=== PATIENT | male | born 1980 | race Caucasian/White ===

== ENCOUNTER 2021-06-09 17:52 | Emergency (ER) | payer OTHER, SELFPAY ==
--- NOTE | ~2021-06-09 | XR_ITS ---
EXAMINATION: PORTABLE CHEST 1 VIEW CLINICAL INFORMATION: sob . COMPARISON: No recent pertinent prior studies are available for comparison. TECHNIQUE: Portable frontal view of the chest was obtained. FINDINGS: The lungs are hypoexpanded. Mild basilar atelectasis but no superimposed focal infiltrate, effusion, edema, or pneumothorax. Cardiac and mediastinal silhouettes are within normal limits for technique. No acute bony abnormality seen. XR/XR chest 1V IMPRESSION: Mild basilar atelectasis and hypoexpansion
[2021-06-09 18:00] VITALS: BP 160/99; PULSE 120; RESP 18; TEMP 37.8; O2SAT 95; BMI 40.1
[2021-06-09 18:43] LABS: COVID-19 Test Positive (Negative); IDNOW Serial# 55D5AD1C
--- NOTE | 2021-06-09 20:14 | ED_ITS ---
HPI - SOB/Dyspnea General Chief Complaint: Dyspnea Stated Complaint: diff breathing Time Seen by Provider: 06/09/21 20:13 Source: patient Mode of arrival: ambulatory Limitations: no limitations History of Present Illness HPI Narrative: weeks ago patient had a sore throat and achey Patient had cough for 11 days. MD elicited complaint: shortness of breath and cough Onset (ago): day(s) (11 days) Timing: constant Severity: mild Exacerbating factors: coughing Associated symptoms: denies other symptoms Related Data Allergies Allergy/AdvReac Type Severity Reaction Status Date / Time No Known Allergies Allergy Verified 06/09/21 18:03 Review of Systems Constitutional: Constitutional: Reports no additional constitutional complaints Eyes: Eyes: Reports no additional eye complaints ENT: Denies dizziness Cardiovascular: Cardiovascular: Reports no additional cardiovascular complaints Respiratory: Respiratory: Reports as per HPI Gastrointestinal: Gastrointestinal: Reports no additional gastrointestinal complaints Musculoskeletal: Musculoskeletal: Reports no additional musculoskeletal complaints Integumentary/Breasts: Skin/Breast: Denies rash Neurologic: Reports system reviewed and no additional complaints, except as documented, Denies dizziness and Denies Sensory deficit (Neuro) Psychiatric: Psychiatric: Denies anxiety [facility] Past Medical History Medical History No acute medical problems Surgical History No history of previous surgery Social History Social History Advance Directives: No Advance Directives Information Provided: No Physical Exam Vital Signs: Vital Signs: Last Vital Signs Temp 100.0 F 06/09/21 18:00 Pulse 120 H 06/09/21 18:00 Resp 18 06/09/21 18:00 BP 160/99 H 06/09/21 18:00 Pulse Ox 95 06/09/21 18:00 Body Mass Index 40.1 Const: Other: male with cough but not looking bad Nutritional Appearance: average body habitus Orientation/consciousness: oriented to person and patient oriented x3 Limitations: no limitations HENMT: Head: Yes normal to inspection Ears: external ears normal General nose exam: Normal external nose present Mouth: Normal oral and palatal mucosa present and oropharynx normal Throat: Yes posterior oropharynx normal Eyes: General: appearance normal, both eyes and all related structures Neck: Other: supple Neck: Yes normal visual inspection Chest: Chest palpation & inspection: normal inspection of the chest Resp: Auscultation: clear to auscultation bilaterally Cardio: Other: tachycardia Jugular venous distension: no JVD Rate: regular rate Rhythm: regular rhythm Heart sounds: S1 normal heart sound present and S2 normal heart sound present GI: Inspection: Yes normal to inspection Palpation (GI): Soft to palpation, nontender and No hepatosplenomegaly present Auscultation: normal bowel sounds : General: Yes no CVA tenderness Back/Spine/Pelvis: Back: no CVA tenderness Skin: General skin exam: no rashes or lesions noted Neuro: General: oriented to person and patient oriented x3 Cranial nerves: Yes CN's II-XII intact bilaterally Motor exam (neuro): 5/5 motor strength present throughout Sensory Exam: No Sensory deficit (Neuro) Extrem: General: Yes normal to inspection Psych: Appearance: grossly normal Course Reevaluation(s) Reevaluation #1: patient looking well despite low grade fever to 100 and tachycardia to 120. His oxygen is 96%. I will discharge him home. He is day 11 of symtoms and I expect he will do well Time: 20:29 MDM - SOB/Dyspnea Lab Data Labs: Lab Results 06/09/21 Range/Units 18:32 COVID-19 (SHEELA) Positive A (Negative) COVID-19 Clin Com See Note Imaging Data Chest x-ray: Radiologist's impression: IMPRESSION: Mild basilar atelectasis and hypoexpansion ? Discharge Plan Discharge Clinical Impression: COVID-19 Patient Disposition: Home, Self-Care Instructions: COVID-19 (Coronavirus Disease 2019) (ED) Additional Instructions: return for worsening shortness of breath Referrals: Physician,None [Primary Care Provider] - 5 days
== END 2021-06-09 20:42 | disposition home or self-care (01) ==
PROVIDERS: Emergency Provider Emergency Medicine
DX: U07.1 COVID-19 (principal); R06.02 Shortness of breath
CPT/HCPCS: 36415; 71045; 87635; 99283

== ENCOUNTER 2021-07-20 17:37 | Emergency (ER) | payer OTHER, SELFPAY ==
--- NOTE | ~2021-07-20 | XR_ITS ---
EXAMINATION: XR SOFT TISSUE NECK CLINICAL INDICATION: Lump in throat COMPARISON: None TECHNIQUE: 2 views of the soft tissue neck were obtained. FINDINGS: Normal prevertebral soft tissues. Normal appearance of the epiglottis. There are degenerative changes of the mid cervical spine. Lung apices are clear. Normal tracheal air column. XR/XR soft tissue neck IMPRESSION: No focal abnormality seen in the soft tissues of the neck.
--- NOTE | ~2021-07-20 | XR_ITS ---
EXAMINATION: XR CHEST CLINICAL INFORMATION: Cough. Question mass right upper chest wall COMPARISON: None TECHNIQUE: 2 views of the chest were obtained. FINDINGS: Low lung volumes. No focal consolidation or mass. Normal pulmonary vascularity. No pleural effusion or pneumothorax. Normal heart size. XR/XR chest 2V IMPRESSION: Low lung volumes. No acute pulmonary disease. No significant change from prior studies. Chest x-rays have limited sensitivity for identifying chest wall masses particularly given the patient's body habitus.
[2021-07-20 18:20] VITALS: BP 151/103; PULSE 86; RESP 18; TEMP 37.1; O2SAT 98; BMI 40.1
--- NOTE | 2021-07-20 18:22 | ED.GENADULT ---
HPI - General Adult General Chief complaint: Upper Respiratory Symptoms <Kalani Harrison NP - Last Filed: 07/20/21 18:25> Stated complaint: something in throat <Kalani Harrison NP - Last Filed: 07/20/21 18:25> Time Seen by Provider: 07/20/21 17:40 <Kalani Harrison NP - Last Filed: 07/20/21 18:25> Source: patient <COTY Mitchell - Last Filed: 07/20/21 21:02> Mode of arrival: ambulatory <COTY Mitchell - Last Filed: 07/20/21 21:02> History of Present Illness HPI narrative: 40-year-old male with no significant past medical history presenting to the ED complaining of lump sensation to right-side of throat x2 weeks. Reports pain with swallowing, reports feels like something is pushing up against his Marques's apple. Denies eating steak bones/fish bones or event occurring after eating/choking. Denies difficulty or inability to swallow, SOB, oral swelling, cough <COTY Mitchell - Last Filed: 07/20/21 21:02> Onset (ago): week(s) <COTY Mitchell - Last Filed: 07/20/21 21:02> Related Data Home medications: Previous Rx's Medication Instructions Recorded aluminum-mag hydroxide-simethicone 5 ml PO 5XD PRN #30 ml 07/20/21 200 mg-200 mg-20 mg/5 mL oral susp (Maalox Advanced) famotidine 20 mg tablet (Pepcid) 20 mg PO DAILY #14 tab 07/20/21 lidocaine HCl 2 % mucosal solution 1 appl MUCOUS MEMBRANE TID PRN 07/20/21 (Lidocaine Viscous) #100 ml <Kalani Harrison NP - Last Filed: 07/20/21 18:25> Allergies/adverse reactions: Allergies Allergy/AdvReac Type Severity Reaction Status Date / Time No Known Allergies Allergy Verified 06/09/21 18:03 <Kalani Harrison NP - Last Filed: 07/20/21 18:25> Review of Systems Review of Systems: Constitutional: No Fever, No Chills, No Fatigue, No Malaise ENT/Mouth: No Ear Pain, No Nasal Congestion,+ sore throat, No Rhinorrhea, + Swallowing Difficulty Eyes: No Eye Pain, No Swelling, No Discharge Cardiovascular: No Chest Pain, No SOB, No Dyspnea on Exertion,No Palpitations Respiratory: No Cough, No Dyspnea Gastrointestinal: No Nausea, No Vomiting, No Diarrhea, No Constipation, No Abdominal pain Genitourinary: No irregular bleeding, No Dysuria, No Urinary Frequency, No Hematuria,No Urgency, No Flank Pain Musculoskeletal: No joint pain, No Myalgias, No Joint Swelling Skin: No Skin Lesions, No rash Neuro: No Weakness, No Numbness,No Headache <COTY Mitchell - Last Filed: 07/20/21 21:02> Yes all other systems are reviewed and are negative <COTY Mitchell - Last Filed: 07/20/21 21:02> [facility] Past Medical History Attestation statement: The following information was validated with the patient. <COTY Mitchell - Last Filed: 07/20/21 21:02> Medical History: Medical History No acute medical problems <Kalani Harrison NP - Last Filed: 07/20/21 18:25> Surgical History: Surgical History No history of previous surgery <Kalani Harrison NP - Last Filed: 07/20/21 18:25> Social History Social History: Social History Advance Directives: No Advance Directives Information Provided: No <Kalani Harrison NP - Last Filed: 07/20/21 18:25> Physical Exam Vital Signs: Vital Signs: Last Vital Signs Temp 98.8 F 07/20/21 18:20 Pulse 86 07/20/21 18:20 Resp 18 07/20/21 18:20 BP 151/103 H 07/20/21 18:20 Pulse Ox 98 07/20/21 18:20 Body Mass Index 40.1 <Kalani Harrison NP - Last Filed: 07/20/21 18:25> Vital Signs: Last Vital Signs Temp 98.8 F 10/18/21 18:20 Pulse 86 07/20/21 18:20 Resp 18 07/20/21 18:20 BP 151/103 H 07/20/21 18:20 Pulse Ox 98 07/20/21 18:20 Body Mass Index 40.1 <COTY Mitchell - Last Filed: 07/20/21 21:02> Const: General: cooperative, healthy appearing and no acute distress <COTY Mitchell - Last Filed: 07/20/21 21:02> Orientation/consciousness: patient oriented x3 <COTY Mitchell - Last Filed: 07/20/21 21:02> Limitations: no limitations <COTY Mitchell - Last Filed: 07/20/21 21:02> HENMT: Head: Yes normal to inspection and Yes atraumatic <COTY Mitchell - Last Filed: 07/20/21 21:02> Ears: hearing grossly normal bilaterally <COTY Mitchell - Last Filed: 07/20/21 21:02> General nose exam: Normal external nose present <COTY Mitchell - Last Filed: 07/20/21 21:02> Face and sinus: Yes normal facial exam <COTY Mitchell - Last Filed: 07/20/21 21:02> Mouth: Normal oral and palatal mucosa present and no drooling <Valerie [place] - Last Filed: 07/20/21 21:02> Throat: Yes posterior oropharynx normal, Yes tonsils normal, Yes uvula midline, No peritonsillar mass, No uvula laterally displaced and No uvular edema <COTY Mitchell - Last Filed: 07/20/21 21:02> Eyes: General: appearance normal, both eyes and all related structures <COTY Mitchell - Last Filed: 07/20/21 21:02> EOM: EOMs intact bilaterally <COTY Mitchell - Last Filed: 07/20/21 21:02> Neck: Neck: Yes normal visual inspection, Yes full ROM, Yes no lymphadenopathy, Yes no meningeal signs, Yes trachea midline, Yes supple and No anterior neck swelling <COTY Mitchell - Last Filed: 07/20/21 21:02> Resp: Effort & Inspection: normal respiratory effort and no stridor <COTY Mitchell - Last Filed: 07/20/21 21:02> Auscultation: clear to auscultation bilaterally, no rales, no rhonchi and no wheezes <COTY Mitchell - Last Filed: 07/20/21 21:02> Cardio: Rate: regular rate <COTY Mitchell - Last Filed: 07/20/21 21:02> Heart sounds: S1 normal heart sound present and S2 normal heart sound present <COTY Mitchell - Last Filed: 07/20/21 21:02> GI: Inspection: Yes normal to inspection <COTY Mitchell - Last Filed: 07/20/21 21:02> Skin: Rashes: no rashes <COTY Mitchell - Last Filed: 07/20/21 21:02> Wounds: no wounds <COTY Mitchell - Last Filed: 07/20/21 21:02> Neuro: General: patient oriented x3 and no meningeal signs <COTY Mitchell - Last Filed: 07/20/21 21:02> Gait exam (Neuro): Normal gait present <COTY Mitchell - Last Filed: 07/20/21 21:02> Extrem: General: Yes normal to inspection <COTY Mitchell - Last Filed: 07/20/21 21:02> Course Course Course Narrative: 1819-This is rapid medical exam. Cough and cold symptoms since /tuesday and feeling there is a mass in throat since yesterday. No fevers, chills, weight loss or night sweats. Posterior oropharynx normal. NO tonsillar swelling/erythema and exudate. Had COVID May 2021. Does not want covid test. Will check CXR. Deferred additional HPI, ROS and PE to primary provider. <Kalani Harrison NP - Last Filed: 07/20/21 18:25> 1820-This is rapid medical exam. Cough and cold symptoms since /tuesday and feeling there is a mass in throat since yesterday. No fevers, chills, weight loss or night sweats. Posterior oropharynx normal. NO tonsillar swelling/erythema and exudate. Had COVID May 2021. Does not want covid test. Will check CXR. Deferred additional HPI, ROS and PE to primary provider. 2053--XR chest 2V IMPRESSION: Low lung volumes. No acute pulmonary disease. No significant change from prior studies. Chest x-rays have limited sensitivity for identifying chest wall masses particularly given the patient's body habitus. XR soft tissue neck IMPRESSION: No focal abnormality seen in the soft tissues of the neck. >>> results discussed with patient including worrisome signs and symptoms and strict return precautions. Discussed with patient needs to follow-up with ENT. He verbalized understanding <COTY Mitchell - Last Filed: 07/20/21 21:02> Medical Decision Making [facility] Narrative Medical decision making narrative: 40-year-old male with no significant past medical history presenting to the ED complaining of lump sensation to right-side of throat x2 weeks. On exam hypertensive, NAD/nontoxic appearing, no preschool neck swelling/intraoral swelling on exam, talking in complete sentences, in no respiratory distress, tolerating p.o. Plan: Soft tissue neck x-ray, CXR <COTY Mitchell - Last Filed: 07/20/21 21:02> Discharge Plan Discharge Clinical Impression: Foreign body sensation in throat <Kalani Harrison NP - Last Filed: 07/20/21 18:25> Patient Disposition: Home, Self-Care <Kalani Harrison NP - Last Filed: 07/20/21 18:25> Instructions: Foreign Body in Pharynx (ED) <Kalani Harrison NP - Last Filed: 07/20/21 18:25> Additional Instructions: The x-rays of her neck and chest were unremarkable Maalox, Pepcid will help with acid reduction Viscous lidocaine will numb the back of her throat It is important for you to follow-up with an ENT specialist. Call tomorrow to make an appointment You develop any difficulty/inability to swallow, shortness of breath, or oral swelling return to the ED immediately <Kalani Harrison NP - Last Filed: 07/20/21 18:25> Prescriptions: New alum-mag hydroxide-simeth [Maalox Advanced] 200-200-20 mg/5 mL suspension 5 ml PO 5XD PRN (Reason: dyspepsia) Qty: 30 RF: 0 famotidine [Pepcid] 20 mg tablet 20 mg PO DAILY Qty: 14 RF: 0 lidocaine HCl [Lidocaine Viscous] 2 % solution 1 appl mucous membrane TID PRN (Reason: pain) Qty: 100 RF: 0 <Kalani Harrison NP - Last Filed: 07/20/21 18:25> Referrals: April Nguyen MD [Physician] - 2 days Hemant Finch MD [Physician] - 2 days Benton Yao [Physician] - 2 days Josh Polanco MD [Physician] - 2 days <Kalani Harrison NP - Last Filed: 07/20/21 18:25>
[2021-07-20] MEDS: Lidocaine HCl Viscous 2 % 15 ML SOLUTION MUCOUS MEM (20:26)
[2021-07-20] MEDS: Magnesium Hydrox/Alum Hydrox 30 ML ORAL.SUSP PO (20:26)
[2021-07-20 21:03] VITALS: BP 150/93; PULSE 75; RESP 17; O2SAT 97
== END 2021-07-20 21:30 | disposition home or self-care (01) ==
PROVIDERS: Emergency Provider Internal Medicine
DX: R09.89 Other specified symptoms and signs involving the circulatory and respiratory systems (principal); M54.2 Cervicalgia; Z79.899 Other long term (current) drug therapy
CPT/HCPCS: 70360; 71046; 99283

== ENCOUNTER 2021-07-20 22:56 | Emergency (ER) | payer SELFPAY ==
--- NOTE | ~2021-07-20 | CT_ITS ---
EXAMINATION: CT SOFT TISSUE NECK WITH CONTRAST CLINICAL INFORMATION: Throat pain, question etiology COMPARISON: Radiographs 07/20/2021 TECHNIQUE: Following the intravenous administration of 100 mL of Omnipaque 350 intravenous contrast, helical imaging was performed in the axial plane with generation of coronal and sagittal reformatted images. This CT examination was performed using dose optimization techniques as appropriate, variously including the following: *Automated exposure control *Adjustment of mA and/or kV according to patient size (this includes techniques or standardized protocols for targeted exams where dose is matched to indication/reason for exam; i.e. extremities or head) *Use of iterative reconstruction technique DLP: 384 mGy-cm FINDINGS: No cervical adenopathy is identified. The parotid glands are homogeneous in attenuation. The submandibular glands are normal. No contour abnormality or pathologic enhancement is seen within the oral cavity or pharyngeal mucosal space. The laryngeal structures are normal. The parapharyngeal fat is preserved. The carotid sheath vasculature opacify normally. No extra mucosal soft tissue mass or fluid collection is seen. No retropharyngeal fluid collection is seen. The thyroid gland is normal. The superior mediastinum is unremarkable. The lung apices are clear. The mastoid air cells and visualized portions of the paranasal sinuses are well-aerated. The temporomandibular joints are normal. No acute osseous abnormalities are seen. The imaged portions of the brain parenchyma are unremarkable. CT/CT soft tissue neck w con IMPRESSION: No acute findings identified.
[2021-07-21 00:26] VITALS: BP 145/94; PULSE 79; RESP 18; TEMP 36.4; O2SAT 97; BMI 40.9
--- NOTE | 2021-07-21 00:36 | ED.GENADULT ---
HPI - General Adult General Chief complaint: General Medical Stated complaint: cp, shaking Time Seen by Provider: 07/21/21 00:36 Source: patient Mode of arrival: ambulatory Limitations: no limitations History of Present Illness HPI narrative: Patient with no known medical history works in [employer] noticing throat pain for last 2 weeks painful to swallow solids patient is taking Eliquis for last 2 weeks was seen here earlier soft tissue neck x-ray was negative patient sent comes back again as still not feeling good and had difficulty in eating of reaching home. Also patient was lying down for heart is beating fast slightly anxious. Also sec pain for last few days which increases on palpation and movement Related Data Previous Rx's Medication Instructions Recorded aluminum-mag hydroxide-simethicone 5 ml PO 5XD PRN #30 ml 07/20/21 200 mg-200 mg-20 mg/5 mL oral susp (Maalox Advanced) famotidine 20 mg tablet (Pepcid) 20 mg PO DAILY #14 tab 07/20/21 lidocaine HCl 2 % mucosal solution 1 appl MUCOUS MEMBRANE TID PRN 07/20/21 (Lidocaine Viscous) #100 ml amoxicillin 875 mg-potassium 1 tab PO BID #20 tab 07/21/21 clavulanate 125 mg tablet (Augmentin) ibuprofen 600 mg tablet 600 mg PO Q6H PRN #20 tab 07/21/21 Allergies Allergy/AdvReac Type Severity Reaction Status Date / Time No Known Allergies Allergy Verified 07/21/21 00:25 Review of Systems Review of Systems: Yes all other systems are reviewed and are negative PMFSH Past Medical History Medical History No acute medical problems Surgical History No history of previous surgery Social History Social History Advance Directives: No Advance Directives Information Provided: Yes Physical Exam Vital Signs: Vital Signs: Last Vital Signs Temp 98.0 F 07/21/21 04:07 Pulse 71 07/21/21 04:07 Resp 16 07/21/21 04:07 BP 152/96 H 07/21/21 04:07 Pulse Ox 97 07/21/21 04:07 Body Mass Index 40.9 Appearance: Alert. Oriented X3. No acute distress. Eyes: No pallor icterus ENT: Pharynx normal. Oral Mucosa moist Neck: Normal inspection. Neck supple. CVS: Normal heart rate and rhythm. Pulses normal. Right 2nd costochondral tenderness Respiratory: No respiratory distress. Equal air entry bilateral, no wheezing/rales/rhonchi Abdomen: Soft and nontender. Bowel sounds are present, no mass palpable, no CVA tenderness Skin: Skin warm and dry. Normal skin color. Normal skin turgor. Extremities: No lower extremity edema. No calf tenderness Neuro: Oriented X 3. Medical Decision Making MDM Narrative Medical decision making narrative: Patient with right costal chondritis with painful to swallow etiology not very clear CBCs normal we will get CT neck to rule out any mass. Dr. Rutledge to check the results and dispo the patient Lab Data Lab results reviewed: Yes I reviewed the patient's lab results. Result diagrams: 07/21/21 01:12 07/21/21 01:12 Labs: Lab Results 07/21/21 07/21/21 07/21/21 Range/Units 01:12 01:12 01:12 WBC 6.7 (4.8-10.8) X10*3/uL RBC 5.05 (4.60-5.80) X10*6/uL Hgb 15.0 (14.0-18.0) g/dl Hct 43.5 (42-52) % MCV 86.1 (80-98) fL MCH 29.7 (27.0-33.0) pg MCHC 34.5 (31.0-36.0) g/dl RDW 13.7 (11.0-16.0) % Plt Count 260 (160-400) X10*3/uL MPV 9.6 (9.4-12.4) fL Immature Gran % (Auto) 0.2 (0.0-0.4) % Neut % (Auto) 60.0 (45-73) % Lymph % (Auto) 28.4 (20-40) % [place] % (Auto) 9.8 (2-11) % Eos % (Auto) 1.1 (0-4) % Baso % (Auto) 0.5 (0-2) % Lymph # (Auto) 1.9 (1.2-4.9) X10*3/uL [place] # (Auto) 0.7 (0.1-1.2) X10*3/uL Eos # (Auto) 0.1 (0.0-0.4) X10*3/uL Baso # (Auto) 0.0 (0.0-0.2) X10*3/uL Abs Immat Gran (auto) 0.01 (0.00-0.03) X10*3/uL Absolute Neuts (auto) 4.0 (2.0-8.3) X10*3/uL Absolute Nucleated RBC 0.000 (0.0-0.012) X10*3/uL Nucleated RBC % (auto) 0.0 (0.0-0.2) /100WBC Sodium 140 (135-145) mmol/L Potassium 3.8 (3.3-5.1) mmol/L Chloride 107 (96-108) mmol/L Carbon Dioxide 27 (22-29) mmol/L Anion Gap 10 L (12-20) BUN 11 (9-16) mg/dL Creatinine 0.97 (0.5-1.4) mg/dL Estim Creat Clear Calc 138.2 Estimated GFR > 60 Random Glucose 92 (60-115) mg/dL Calcium 9.2 (8.4-10.2) mg/dL Total Bilirubin 0.8 (0.0-1.0) mg/dL AST 18 (5-37) U/L ALT 21 (0-40) U/L Alkaline Phosphatase 68 (39-117) U/L Troponin I High Sens < 3.5 (<3.5-35.0) ng/L Total Protein 6.9 (6.5-8.0) g/dL Albumin 4.3 (3.5-5.0) g/dL S. pyogenes GrpA LORRI (Negative) 07/21/21 Range/Units 01:45 WBC (4.8-10.8) X10*3/uL RBC (4.60-5.80) X10*6/uL Hgb (14.0-18.0) g/dl Hct (42-52) % MCV (80-98) fL MCH (27.0-33.0) pg MCHC (31.0-36.0) g/dl RDW (11.0-16.0) % Plt Count (160-400) X10*3/uL MPV (9.4-12.4) fL Immature Gran % (Auto) (0.0-0.4) % Neut % (Auto) (45-73) % Lymph % (Auto) (20-40) % [place] % (Auto) (2-11) % Eos % (Auto) (0-4) % Baso % (Auto) (0-2) % Lymph # (Auto) (1.2-4.9) X10*3/uL [place] # (Auto) (0.1-1.2) X10*3/uL Eos # (Auto) (0.0-0.4) X10*3/uL Baso # (Auto) (0.0-0.2) X10*3/uL Abs Immat Gran (auto) (0.00-0.03) X10*3/uL Absolute Neuts (auto) (2.0-8.3) X10*3/uL Absolute Nucleated RBC (0.0-0.012) X10*3/uL Nucleated RBC % (auto) (0.0-0.2) /100WBC Sodium (135-145) mmol/L Potassium (3.3-5.1) mmol/L Chloride (96-108) mmol/L Carbon Dioxide (22-29) mmol/L Anion Gap (12-20) BUN (9-16) mg/dL Creatinine (0.5-1.4) mg/dL Estim Creat Clear Calc Estimated GFR Random Glucose (60-115) mg/dL Calcium (8.4-10.2) mg/dL Total Bilirubin (0.0-1.0) mg/dL AST (5-37) U/L ALT (0-40) U/L Alkaline Phosphatase (39-117) U/L Troponin I High Sens (<3.5-35.0) ng/L Total Protein (6.5-8.0) g/dL Albumin (3.5-5.0) g/dL S. pyogenes GrpA LORRI Negative (Negative) ECG Data Attestation: I personally reviewed and interpreted this ECG as follows: Interpretation: Normal sinus rhythm heart rate 72 beats per minute LVH no acute ST T wave changes no acute ischemia Discharge Plan Discharge Clinical Impression: Acute costochondritis Pharyngitis Qualifiers: Pharyngitis/tonsillitis etiology: unspecified etiology Qualified Code(s): J02.9 - Acute pharyngitis, unspecified Patient Disposition: Home, Self-Care Instructions: Pharyngitis (ED), Costochondritis (ED) Additional Instructions: Drink plenty of fluids Ibuprofen for pain Antibiotic as advised Follow-up with PCP/ENT problem continue Prescriptions: New amoxicillin-pot clavulanate [Augmentin] 875-125 mg tablet 1 tab PO BID Qty: 20 RF: 0 ibuprofen 600 mg tablet 600 mg PO Q6H PRN (Reason: pain) Qty: 20 RF: 0 No Action alum-mag hydroxide-simeth [Maalox Advanced] 200-200-20 mg/5 mL suspension 5 ml PO 5XD PRN (Reason: dyspepsia) Qty: 30 RF: 0 famotidine [Pepcid] 20 mg tablet 20 mg PO DAILY Qty: 14 RF: 0 lidocaine HCl [Lidocaine Viscous] 2 % solution 1 appl mucous membrane TID PRN (Reason: pain) Qty: 100 RF: 0 Referrals: Phil Gary MD [Physician] - 1 week Interventions: ED Discharge Assessment Last Done: 07/21/21 04:09 Discharge Date/Time: 07/21/21 04:10
--- NOTE | 2021-07-21 00:48 | ECG_ITS ---
Test Reason : chest pressure Blood Pressure : / mmHG Vent. Rate : 072 BPM Atrial Rate : 072 BPM P-R Int : 174 ms QRS Dur : 104 ms QT Int : 422 ms P-R-T Axes : 039 -21 004 degrees QTc Int : 462 ms Normal sinus rhythm RSR' or QR pattern in V1 suggests right ventricular conduction delay Minimal voltage criteria for LVH, may be normal variant ( R in aVL ) Borderline ECG No previous ECGs available Referred By: Gil Herndon Electronically Signed By:DIOGO POPE MD
[2021-07-21 01:17] LABS: Basophils Percent Auto 0.5 % (0-2); Eosinophils Absolute Auto 0.1 X10*3/uL (0.0-0.4); Eosinophils Percent Auto 1.1 % (0-4); Hematocrit 43.5 % (42-52); Imm Gran Abs Auto 0.01 X10*3/uL (0.00-0.03); Imm Gran Pct Auto 0.2 % (0.0-0.4); Lymphocytes Absolute Auto 1.9 X10*3/uL (1.2-4.9); Lymphocytes Percent Auto 28.4 % (20-40); MANUAL DIFF FLAG NO; Mean Corpuscular HGB Conc 34.5 g/dl (31.0-36.0); Mean Corpuscular Hemoglobin 29.7 pg (27.0-33.0); Mean Corpuscular Volume 86.1 fL (80-98); Mean Platelet Volume 9.6 fL (9.4-12.4); Monocytes Absolute Auto 0.7 X10*3/uL (0.1-1.2); Monocytes Percent Auto 9.8 % (2-11); Platelet Count 260 X10*3/uL (160-400); Red Blood Count 5.05 X10*6/uL (4.60-5.80); Red Cell Distribution Width 13.7 % (11.0-16.0); White Blood Count 6.7 X10*3/uL (4.8-10.8)
[2021-07-21 01:23] VITALS: BP 172/108; PULSE 68; RESP 14; O2SAT 97
[2021-07-21 01:35] LABS: Alanine Aminotransferase 21 U/L (0-40); Albumin Level 4.3 g/dL (3.5-5.0); Alkaline Phosphatase 68 U/L (39-117); Anion Gap 10 (12-20); Aspartate Amino Transferase 18 U/L (5-37); Bilirubin Total 0.8 mg/dL (0.0-1.0); Blood Urea Nitrogen 11 mg/dL (9-16); Calcium 9.2 mg/dL (8.4-10.2); Carbon Dioxide 27 mmol/L (22-29); Chloride 107 mmol/L (96-108); Creatinine Clr Calc Pharmacy 138.2; Estimated Glomerular Filt Rate > 60; Glucose Random 92 mg/dL (60-115); Potassium 3.8 mmol/L (3.3-5.1); Sodium 140 mmol/L (135-145); Total Protein 6.9 g/dL (6.5-8.0)
[2021-07-21 01:41] VITALS: BP 146/94
[2021-07-21 01:41] LABS: Troponin-I High Sensitivity < 3.5 ng/L (<3.5-35.0)
[2021-07-21 02:41] LABS: Strep A Nucleic Acid Negative (Negative)
[2021-07-21] MEDS: Amoxicillin/Potassium Clav 875 MG TABLET PO (03:06)
[2021-07-21] MEDS: Ketorolac Tromethamine 15 MG/ML VIAL 30 MG IVPUSH (03:06)
[2021-07-21] MEDS: iohexoL 350 MG/ML 100 ML INFUS..BTL 60 ML IV (03:35)
[2021-07-21 04:07] VITALS: BP 152/96; PULSE 71; RESP 16; TEMP 36.7; O2SAT 97
== END 2021-07-21 04:10 | disposition home or self-care (01) ==
PROVIDERS: Emergency Provider Internal Medicine
DX: M94.0 Chondrocostal junction syndrome [Tietze] (principal); J02.9 Acute pharyngitis, unspecified; Z79.899 Other long term (current) drug therapy
CPT/HCPCS: 36415; 70491; 80053; 84484; 85025; 87651; 93005; 96374; 99284; J1885; Q9967

== ENCOUNTER 2021-10-13 08:42 | Outpatient (REF) | payer OTHER, SELFPAY ==
[2021-10-13 09:40] LABS: Binax Internal Control QC Valid; Binax Now Covid-19 Ag Negative (Negative)
== END 2021-10-13 08:43 | disposition home or self-care (01) ==
LOC: HO.LAB 08:42
PROVIDERS: Visit Provider Internal Medicine
DX: Z20.822 Contact with and (suspected) exposure to COVID-19 (principal)
CPT/HCPCS: C9803

== ENCOUNTER 2024-09-18 15:32 | Emergency (ER) | payer SELFPAY ==
--- NOTE | ~2024-09-18 | CT_ITS ---
EXAMINATION: CT ABDOMEN AND PELVIS WITHOUT CONTRAST CLINICAL INFORMATION: Right flank pain COMPARISON: None available. TECHNIQUE: Multidetector volumetric imaging was performed from the superior aspect of the liver through the pubic symphysis. Sagittal and coronal reformatted images were obtained on the technologist's workstation. This CT examination was performed using dose optimization techniques as appropriate, variously including the following: *Automated exposure control *Adjustment of mA and/or kV according to patient size (this includes techniques or standardized protocols for targeted exams where dose is matched to indication/reason for exam; i.e. extremities or head) *Use of iterative reconstruction technique DLP: 918 mGy-cm FINDINGS: LUNG BASES: The visualized lung bases are unremarkable. Heart size is normal. No pericardial or pleural effusion seen. LIVER, GALLBLADDER, AND BILIARY TREE: The liver is normal in size, shape, and attenuation. No focal hepatic lesion or biliary ductal dilatation is present. The gallbladder is unremarkable with no evidence of radiopaque gallstones, gallbladder wall thickening, or obvious pericholecystic inflammatory changes. PANCREAS: Visualized body and head of the pancreas is normal. 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 SPLEEN: Unremarkable. ADRENAL GLANDS: Unremarkable. KIDNEYS AND URETERS: The kidneys are normal in size, shape, and attenuation. There is a 4 mm nonobstructive radiopaque calculi upper pole left kidney and a 2 mm nonobstructive radiopaque calculi mid pole right kidney. There is a 2 mm radiopaque calculi the right UVJ resulting in mild right hydroureteronephrosis.. BLADDER: Unremarkable. GASTROINTESTINAL TRACT: Scattered stool and gas is seen in colon without any significant distention. The small bowel loops are normal caliber. Appendix is normal caliber. No free air or free fluid. ABDOMINAL WALL: A small umbilical hernia containing fat is noted. LYMPH NODES: Normal. VASCULAR: Unremarkable. PELVIC VISCERA: Unremarkable. OSSEOUS STRUCTURES: Unremarkable. CT/CT abdomen pelvis wo IV con IMPRESSION: 2 mm obstructive radiopaque calculi right UPJ with mild hydroureteronephrosis. Bilateral nephrolithiasis as described above. Fleischner guidelines were followed. Electronically signed by: George He MD 09/18/2024 06:13 PM [facility]
[2024-09-18 15:41] VITALS: BP 176/111; PULSE 70; RESP 19; TEMP 36.6; O2SAT 98; BMI 38.3
--- NOTE | 2024-09-18 15:42 | ED_ITS ---
HPI - General Adult General Chief complaint: Urogenital-Male Stated complaint: Kidney stone? Time Seen by Provider: 09/18/24 21:53 Source: patient Limitations: no limitations History of Present Illness ED Provider: Radha wild PA-C HPI narrative: 44-year-old male with a history of kidney stones presents with right flank pain since this afternoon. Pain over mid flank with radiation to anterior abdomen at times. Pain is intermittent, becomes severe. Associated nausea vomiting and discoloration of his urine. Denies fever. Related Data Previous Rx's ?Medication ?Instructions ?Recorded aluminum-mag hydroxide-simethicone 5 ml PO 5XD PRN dyspepsia #30 mL 07/20/21 200 mg-200 mg-20 mg/5 mL oral susp (Maalox Advanced) famotidine 20 mg tablet (Pepcid) 20 mg PO DAILY #14 tabs 07/20/21 lidocaine HCl 2 % mucosal solution 1 appl mucous membrane TID PRN 07/20/21 (Lidocaine Viscous) pain #100 mL amoxicillin 875 mg-potassium 1 tab PO BID #20 tabs 07/21/21 clavulanate 125 mg tablet (Augmentin) ibuprofen 600 mg tablet 600 mg PO Q6H PRN pain #20 tabs 07/21/21 ketorolac 10 mg tablet 10 mg PO Q6H PRN pain #20 tabs 09/18/24 ondansetron HCl 4 mg tablet 4 mg PO Q8H PRN nausea and 09/18/24 vomiting #10 tabs tamsulosin 0.4 mg capsule (Flomax) 0.4 mg PO DAILY #7 caps 09/18/24 Allergies Allergy/AdvReac Type Severity Reaction Status Date / Time No Known Allergies Allergy Verified 09/18/24 15:43 Review of Systems 2 Review of Systems: Yes all other systems are reviewed and are negative Constitutional: Constitutional: Denies fatigue and Denies fever(s) Cardiovascular: Cardiovascular: Denies chest pain and Denies dyspnea Respiratory: Respiratory: Denies dyspnea Gastrointestinal: Gastrointestinal: Reports abdominal pain, Reports nausea and Reports vomiting Genitourinary: Genitourinary: Reports hematuria, Denies dysuria and Reports flank pain Endocrine: Endocrine: Denies fatigue PMFSH Past Medical History Attestation statement: The following information was validated with the patient. Medical History No acute medical problems Surgical History No history of previous surgery Social History Social History Smoked in Last 30 Days: No Use of substances other than those prescribed or required for medical reasons: No Advance Directives: No Advance Directives Information Provided: No Do you have a plan to hurt others: No Plan Physical Exam ED Vital Signs: Vital Signs - 24 hr 09/18/24 15:41 09/18/24 20:40 09/18/24 22:09 Temperature 98 F 98.6 F 98.0 F Pulse Rate 70 70 60 Respiratory Rate 19 18 20 Blood Pressure 176/111 H 149/109 H 138/90 H Pulse Oximetry 98 98 98 Oxygen Delivery Method Room Air Room Air Room Air BMI result Body Mass Index 38.3 Const Other: Alert, well-appearing Orientation/consciousness: patient oriented x3 Resp Other: Nonlabored respirations Cardio Other: Normal peripheral perfusion GI Other: Abdomen is soft, nondistended nontender Back/Spine/Pelvis Other: No CVA tenderness Skin Other: Warm dry no rash Neuro General: patient oriented x3, no focal motor deficits and CN's II-XI intact bilaterally Psych Other: Calm cooperative Course Course Course Narrative: RME, this is a rapid medical exam performed by Julián Carreno please refer to primary provider for complete H&P- 44-year-old male presents for evaluation of sudden onset of right flank pain. This started about 30 minutes prior to arrival. Reports a remote history of kidney stones about 15 years ago and this feels similar. Plan for labs, urinalysis, CT scan of the abdomen pelvis without contrast Medications Administered Discontinued Medications Generic Name Dose Route Start Last Admin Trade Name Freq PRN Reason Stop Dose Admin Ondansetron HCl 4 mg 09/18/24 15:43 09/18/24 15:48 Ondansetron Odt 4 Mg Tab.Rapdis TRANSLINGU 09/18/24 15:44 4 mg ONCE ONE Administration Tamsulosin HCl 0.4 mg 09/18/24 22:07 09/18/24 22:23 Tamsulosin Hcl 0.4 Mg Capsule PO 09/18/24 22:08 0.4 mg ONCE ONE Administration Medical Decision Making Medical Decision Making [facility] Narrative: 44-year-old male with a history of kidney stones presents with right flank pain since this afternoon. Pain over mid flank with radiation to anterior abdomen at times. Pain is intermittent, becomes severe. Associated nausea vomiting and discoloration of his urine. Denies fever. Problem: Kidney stones History: Per patient I have considered the following differential diagnoses: Pyelonephritis, renal colic, biliary colic, UTI, appendicitis Plan: Given distribution of discomfort in nature of symptoms, this is likely renal colic. And the patient has a history. I ordered medications for him, however his symptoms have abated. Screening labs including a CT scan have already been obtained. He is passing a stone it is 2 mm at the UPJ. We will send with home meds, the stone is small little pass on its own, we will give him a contact for Urology in the event that he requires intervention in the future. I have independently reviewed the following tests: Labs: No leukocytosis, not anemic, no electrolyte abnormality, urine not infected he is passing hematuria CT abdomen and pelvis: CT/CT abdomen pelvis wo IV con IMPRESSION: 2 mm obstructive radiopaque calculi right UPJ with mild hydroureteronephrosis. Bilateral nephrolithiasis as described above. Fleischner guidelines were followed. Electronically signed by: George He MD 09/18/2024 06:13 PM [facility] [place] Data 09/18/24 16:43 09/18/24 16:43 Labs: Lab Results 09/18/24 09/18/24 Range/Units 16:43 20:24 WBC 8.0 (4.8-10.8) X10*3/uL RBC 5.25 (4.60-5.80) X10*6/uL Hgb 15.5 (14.0-18.0) g/dl Hct 45.6 (42.0-52.0) % MCV 86.9 (80.0-98.0) fL MCH 29.5 (27.0-33.0) pg MCHC 34.0 (31.0-36.0) g/dl RDW 13.1 (11.0-16.0) % Plt Count 248 (160-400) X10*3/uL MPV 10.1 (9.4-12.4) fL Immature Gran % (Auto) 0.4 (0.0-0.4) % Neut % (Auto) 70.0 (45-73) % Lymph % (Auto) 19.7 L (20-40) % Taylor % (Auto) 8.0 (2-11) % Eos % (Auto) 1.4 (0-4) % Baso % (Auto) 0.5 (0-2) % Lymph # (Auto) 1.6 (1.2-4.9) X10*3/uL Taylor # (Auto) 0.6 (0.1-1.2) X10*3/uL Eos # (Auto) 0.1 (0.0-0.4) X10*3/uL Baso # (Auto) 0.0 (0.0-0.2) X10*3/uL Abs Immat Gran (auto) 0.03 (0.00-0.03) X10*3/uL Absolute Neuts (auto) 5.6 (2.0-8.3) x10*3/uL Absolute Nucleated RBC 0.000 (0.0-0.012) X10*3/uL Nucleated RBC % (auto) 0.0 (0.0-0.2) /100WBC Sodium 143 (135-145) mmol/L Potassium 4.1 (3.3-5.1) mmol/L Chloride 108 (96-108) mmol/L Carbon Dioxide 30 H (22-29) mmol/L Anion Gap 9 L (12-20) BUN 18 H (9-16) mg/dL Creatinine 0.96 (0.5-1.4) mg/dL Estim Creat Clear Calc 129.3 Estimated GFR > 60 Random Glucose 91 (60-115) mg/dL Calcium 9.1 (8.4-10.2) mg/dL Total Bilirubin 0.5 (0.0-1.0) mg/dL AST 21 (5-37) U/L ALT 25 (0-40) U/L Alkaline Phosphatase 84 (39-117) U/L Total Protein 7.1 (6.5-8.0) g/dL Albumin 4.2 (3.5-5.0) g/dL Lipase 16 (8-78) U/L Urine Color Yellow Urine Appearance Clear Urine pH 6.0 (5.0-9.0) Ur Specific [place] 1.020 (1.005-1.025) Urine Protein Negative (Neg-Trace) mg/dL Urine Glucose (UA) Negative (Negative) mg/dL Urine Ketones Trace (Negative) mg/dL Urine Blood Large (3+) H (Negative) Urine Nitrite Negative (Negative) Ur Leukocyte Esterase Negative (Negative) Urine RBC >20 H (0-2) /HPF Urine WBC 0-5 (0-5) /HPF Ur Squamous Epith Cells 0-2 (0-2) /HPF Urine Bacteria None Seen (None Seen) Hyaline Casts 0-2 (0-2) /LPF Discharge Plan Discharge Clinical Impression: Calculus of proximal right ureter Patient Disposition: Home, Self-Care Instructions: Ureteral Stones (ED) Additional Instructions: You were found to be passing a kidney stone on the right, it measures 2 mm. You had no lab abnormalities. See home care instructions. Use the Flomax as directed. This will help induce urine flow. Uses Zofran as needed for nausea, use the ketorolac as needed for pain. I am providing you with a contact for urologist in the event that you require intervention in the future. Follow up with your primary care provider as needed. Prescriptions: New tamsulosin [Flomax] 0.4 mg capsule 0.4 mg PO DAILY Qty: 7 0RF ondansetron HCl 4 mg tablet 4 mg PO Q8H PRN (Reason: nausea and vomiting) Qty: 10 0RF ketorolac 10 mg tablet 10 mg PO Q6H PRN (Reason: pain) Qty: 20 0RF Rx Instructions: maximum total duration of 5 days from all oral, intranasal, or parenteral formulations. The patient received Toradol here in the emergency department. No Action amoxicillin-pot clavulanate [Augmentin] 875-125 mg tablet 1 tab PO BID Qty: 20 0RF ibuprofen 600 mg tablet 600 mg PO Q6H PRN (Reason: pain) Qty: 20 0RF alum-mag hydroxide-simeth [Maalox Advanced] 200-200-20 mg/5 mL suspension 5 ml PO 5XD PRN (Reason: dyspepsia) Qty: 30 0RF Rx Instructions: administer between meals and at bedtime famotidine [Pepcid] 20 mg tablet 20 mg PO DAILY Qty: 14 0RF lidocaine HCl [Lidocaine Viscous] 2 % solution 1 appl mucous membrane TID PRN (Reason: pain) Qty: 100 0RF Rx Instructions: 10 mL swished in the mouth and spit out Print Language: Kinyarwanda
[2024-09-18] MEDS: Ondansetron ODT 4 MG TAB.RAPDIS TRANSLINGU (15:48)
[2024-09-18 16:50] LABS: MANUAL DIFF FLAG NO
[2024-09-18 16:56] LABS: Basophils Percent Auto 0.5 % (0-2); Eosinophils Absolute Auto 0.1 X10*3/uL (0.0-0.4); Eosinophils Percent Auto 1.4 % (0-4); Hematocrit 45.6 % (42.0-52.0); Hemoglobin 15.5 g/dl (14.0-18.0); Imm Gran Abs Auto 0.03 X10*3/uL (0.00-0.03); Imm Gran Pct Auto 0.4 % (0.0-0.4); Lymphocytes Absolute Auto 1.6 X10*3/uL (1.2-4.9); Lymphocytes Percent Auto 19.7 % (20-40); Mean Corpuscular Hemoglobin 29.5 pg (27.0-33.0); Mean Corpuscular Volume 86.9 fL (80.0-98.0); Mean Platelet Volume 10.1 fL (9.4-12.4); Monocytes Absolute Auto 0.6 X10*3/uL (0.1-1.2); Neutrophils Absolute Auto 5.6 x10*3/uL (2.0-8.3); Platelet Count 248 X10*3/uL (160-400); Red Blood Count 5.25 X10*6/uL (4.60-5.80); Red Cell Distribution Width 13.1 % (11.0-16.0)
[2024-09-18 17:13] LABS: Alanine Aminotransferase 25 U/L (0-40); Albumin Level 4.2 g/dL (3.5-5.0); Alkaline Phosphatase 84 U/L (39-117); Anion Gap 9 (12-20); Aspartate Amino Transferase 21 U/L (5-37); Bilirubin Total 0.5 mg/dL (0.0-1.0); Blood Urea Nitrogen 18 mg/dL (9-16); Calcium 9.1 mg/dL (8.4-10.2); Carbon Dioxide 30 mmol/L (22-29); Chloride 108 mmol/L (96-108); Creatinine Clr Calc Pharmacy 129.3; Estimated Glomerular Filt Rate > 60; Glucose Random 91 mg/dL (60-115); Lipase 16 U/L (8-78); Potassium 4.1 mmol/L (3.3-5.1); Sodium 143 mmol/L (135-145); Total Protein 7.1 g/dL (6.5-8.0)
[2024-09-18 20:40] VITALS: BP 149/109; PULSE 70; RESP 18; TEMP 37; O2SAT 98
[2024-09-18 20:40] LABS: Appearance Urine Clear; Color Urine Yellow; Glucose Urine UA Negative (Negative); Leukocyte Esterase Urine Negative (Negative); Nitrite Urine Negative (Negative); UMIC TRIGGER UACC YES; Urine Blood Large (3+) (Negative); Urine Ketones Trace mg/dL (Negative); Urine Protein Negative (Neg-Trace)
[2024-09-18 20:45] LABS: Bacteria Urine None Seen (None Seen); Hyaline Casts Urine 0-2 /LPF (0-2); RBC Urine >20 /HPF (0-2); Squamous Epithelial Cell Urine 0-2 /HPF (0-2); WBC Urine 0-5 /HPF (0-5)
[2024-09-18 22:09] VITALS: BP 138/90; PULSE 60; RESP 20; TEMP 36.7; O2SAT 98
[2024-09-18] MEDS: Tamsulosin HCL 0.4 MG CAPSULE PO (22:23)
[2024-09-18 23:06] VITALS: BP 138/90; PULSE 60; RESP 20; TEMP 36.7; O2SAT 98
== END 2024-09-18 23:06 | disposition home or self-care (01) ==
PROVIDERS: Physician Assistant; Emergency Provider Emergency Medicine
DX: N20.1 Calculus of ureter (principal); R10.2 Pelvic and perineal pain; R11.2 Nausea with vomiting, unspecified; Z79.899 Other long term (current) drug therapy
CPT/HCPCS: 36415; 74176; 80053; 81001; 83690; 85025; 99284